=== PATIENT | male | born 1975 | race African-American/Black ===

== ENCOUNTER 2021-09-09 15:05 | Inpatient (IN) | payer BC, MEDICAID ==
[~2021-09-09] VITALS: Ht 170.2 cm; Wt 83.6 kg
[2021-09-09] MEDS ORDERED: ASPIRIN 81MG TABLET PO ONE (15:45)
[2021-09-09] MEDS ORDERED: NICARDIPINE 100 MG in SODIUM CHLORIDE 0.9% 60 ML IV ONE (15:45)
[2021-09-09 16:21] LABS: BASOPHILS % 1.5 % (0.0-2.0); EOSINOPHILS % 1.9 % (0.0-5.0); HEMATOCRIT. 38.7 % (42.0-52.0); HEMOGLOBIN. 12.2 g/dL (14.0-18.0); LYMPHOCYTES % 16.9 % (20.0-50.0); MEAN CORPUSCULAR HEMOGLOBIN 25.5 pg (28.0-32.0); MEAN PLATELET VOLUME 9.5 fl (7.4-10.4); MONOCYTES % 10.6 % (2.0-8.0); NEUTROPHILS % 69.1 % (40.0-76.0); PLATELET 235 x1000/uL (130-400); RED BLOOD CELL COUNT 4.78 mill/uL (4.7-6.1); RED CELL DISTRIBUTION WIDTH 18.6 % (11.6-14.6)
[2021-09-09 16:26] LABS: CHLORIDE 105 mEq/L (98-107)
[2021-09-10] VITALS (8 sets, daily range): BP systolic 132–187; BP diastolic 94–132
[2021-09-10] MEDS ORDERED: ONDANSETRON HCL 4MG/2ML INJ IV PRN (02:45)
[2021-09-10] MEDS ORDERED: ACETAMINOPHEN 650MG SUPP PR PRN (02:45)
[2021-09-10] MEDS ORDERED: HYDROCODONE/ACETAMINOPHEN 5/325MG TABLET PO PRN (02:45)
[2021-09-10] MEDS ORDERED: IPRATROPIUM/ALBUTEROL 0.5-3(2.5)MG/3ML NEB HHN PRN (02:45)
[2021-09-10] MEDS ORDERED: DIPHENHYDRAMINE 50MG/ML VIAL IV PRN (02:45)
[2021-09-10] MEDS ORDERED: ACETAMINOPHEN 325MG TABLET PO PRN ×2 (02:45)
[2021-09-10] MEDS ORDERED: DOCUSATE SODIUM 100MG CAPSULE PO PRN (02:45)
[2021-09-10] MEDS ORDERED: METOPROLOL TARTRATE 25MG TABLET PO SCH ×2 (02:45→09:00)
[2021-09-10] MEDS ORDERED: MAGNESIUM/ALUMINUM HYDROXIDE/SIMETHICONE 30ML UDC PO PRN (02:45)
[2021-09-10] MEDS ORDERED: AMLODIPINE 10MG TABLET PO SCH ×2 (03:00→09:00)
[2021-09-10] MEDS ORDERED: NALOXONE HCL 0.4 MG/ML 1ML VIAL IV PRN (03:15)
[2021-09-10] MEDS: FUROSEMIDE 40MG/4ML VIAL IV SCH ×4 (03:35→17:46)
[2021-09-10] MEDS: ASPIRIN 81MG EC TABLET PO SCH (09:22)
[2021-09-10] MEDS: CLONIDINE 0.1MG TABLET PO PRN ×2 (10:48→17:46)
[2021-09-10 12:11] LABS: BASOPHILS % 0.8 % (0.0-2.0); EOSINOPHILS % 3.6 % (0.0-5.0); HEMATOCRIT. 36.6 % (42.0-52.0); HEMOGLOBIN. 11.9 g/dL (14.0-18.0); LYMPHOCYTES % 12.8 % (20.0-50.0); MEAN CORPUSCULAR HEMOGLOBIN 26.3 pg (28.0-32.0); MEAN CORPUSCULAR VOLUME 80.6 fL (80.0-94.0); MEAN PLATELET VOLUME 9.1 fl (7.4-10.4); MONOCYTES % 9.9 % (2.0-8.0); NEUTROPHILS % 72.9 % (40.0-76.0); PLATELET 240 x1000/uL (130-400); RED BLOOD CELL COUNT 4.54 mill/uL (4.7-6.1)
[2021-09-10 12:16] LABS: CHLORIDE 108 mEq/L (98-107)
[2021-09-10 12:25] LABS: PHOSPHORUS 3.6 mg/dL (2.5-4.9)
[2021-09-10 12:27] LABS: HDL CHOLESTEROL 41 mg/dL (40-59); LDL CHOLESTEROL 69 mg/dL (5-100)
[2021-09-10 12:28] LABS: CREATINE KINASE 145 IU/L (39-308)
[2021-09-10] MEDS ORDERED: POTASSIUM CHLORIDE 20MEQ TABLET SR PO NR (13:45)
[2021-09-10] MEDS: ENOXAPARIN 30MG/0.3ML SYR SUBCUT SCH (15:12)
[2021-09-10 16:33] LABS: CLARITY URINE CLEAR (CLEAR); COLOR URINE YELLOW (YELLOW); KETONES URINE NEGATIVE (NEGATIVE); LEUKOCYTE ESTERASE URINE NEGATIVE (NEGATIVE); NITRITE URINE NEGATIVE (NEGATIVE); OCCULT BLOOD URINE 1+ (NEGATIVE); PH URINE 5.5 (4.5-8.0); PROTEIN URINE 3+ (NEGATIVE); UROBILINOGEN URINE 0.2 E.U./dL (0.2-1.0)
[2021-09-10 16:58] LABS: *AMPHETAMINES SCREEN URINE NEGATIVE (NEGATIVE); *BARBITURATES SCREEN URINE NEGATIVE (NEGATIVE); *BENZODIAZEPINES SCREEN URINE NEGATIVE (NEGATIVE); *COCAINE SCREEN URINE NEGATIVE (NEGATIVE); METHADONE URINE SCREEN NEGATIVE (NEGATIVE); OPIATES URINE SCREEN NEGATIVE (NEGATIVE)
[2021-09-10 17:00] LABS: CANNABINOID URINE SCREEN PRESUMTIVE POSITIVE (NEGATIVE); PHENCYCLIDINE URINE SCREEN NEGATIVE (NEGATIVE)
[2021-09-10] MEDS ORDERED: INFLUENZA VACCINE 05/PF 0.5 ML SYRINGE IM ONE (17:15)
[2021-09-10] MEDS ORDERED: AMLODIPINE 5MG TABLET PO NR (19:00)
[2021-09-10] MEDS ORDERED: HYDRALAZINE HCL 10MG TABLET PO NR (19:00)
[2021-09-10] MEDS ORDERED: CARVEDILOL 3.125 MG TABLET PO NR (19:00)
[2021-09-10] MEDS: CARVEDILOL 3.125 MG TABLET PO SCH (21:00)
[2021-09-10] MEDS: AMLODIPINE 5MG TABLET PO SCH (21:00)
[2021-09-10] MEDS: HYDRALAZINE HCL 10MG TABLET PO SCH (21:00)
[2021-09-11] VITALS (12 sets, daily range): BP systolic 118–152; BP diastolic 76–113
[2021-09-11 07:09] LABS: BASOPHILS % 1.1 % (0.0-2.0); EOSINOPHILS % 2.4 % (0.0-5.0); HEMATOCRIT. 33.8 % (42.0-52.0); LYMPHOCYTES % 20.1 % (20.0-50.0); MEAN CORPUSCULAR HEMOGLOBIN 26.2 pg (28.0-32.0); MEAN CORPUSCULAR VOLUME 80.7 fL (80.0-94.0); MEAN PLATELET VOLUME 9.1 fl (7.4-10.4); MONOCYTES % 12.9 % (2.0-8.0); NEUTROPHILS % 63.5 % (40.0-76.0); PLATELET 216 x1000/uL (130-400); RED BLOOD CELL COUNT 4.19 mill/uL (4.7-6.1); RED CELL DISTRIBUTION WIDTH 17.6 % (11.6-14.6)
[2021-09-11 07:13] LABS: CHLORIDE 106 mEq/L (98-107)
[2021-09-11] MEDS: FUROSEMIDE 40MG/4ML VIAL IV SCH ×2 (07:38→16:54)
[2021-09-11] MEDS: ASPIRIN 81MG EC TABLET PO SCH (07:39)
[2021-09-11] MEDS: HYDRALAZINE HCL 10MG TABLET PO SCH (07:39)
[2021-09-11] MEDS: AMLODIPINE 5MG TABLET PO SCH ×2 (07:39→20:52)
[2021-09-11] MEDS: CARVEDILOL 3.125 MG TABLET PO SCH (07:39)
[2021-09-11] MEDS: HYDRALAZINE HCL 25MG TABLET PO SCH ×2 (09:00→21:43)
[2021-09-11] MEDS: CARVEDILOL 6.25 MG TABLET PO SCH ×2 (09:00→20:52)
[2021-09-11] MEDS ORDERED: POTASSIUM CHLORIDE 20MEQ TABLET SR PO NR (09:00)
[2021-09-11] MEDS: GUAIFENESIN 200MG/10ML SUGAR FREE UDC PO PRN ×3 (13:23→21:43)
[2021-09-11 16:57] LABS: *AMPHETAMINES SCREEN URINE NEGATIVE (NEGATIVE); *BARBITURATES SCREEN URINE NEGATIVE (NEGATIVE); *BENZODIAZEPINES SCREEN URINE NEGATIVE (NEGATIVE); CANNABINOID URINE SCREEN PRESUMTIVE POSITIVE (NEGATIVE); METHADONE URINE SCREEN NEGATIVE (NEGATIVE); OPIATES URINE SCREEN NEGATIVE (NEGATIVE); PHENCYCLIDINE URINE SCREEN NEGATIVE (NEGATIVE)
[2021-09-11] MEDS: ENOXAPARIN 30MG/0.3ML SYR SUBCUT SCH (16:57)
[2021-09-11 16:58] LABS: *COCAINE SCREEN URINE NEGATIVE (NEGATIVE)
[2021-09-12] VITALS (12 sets, daily range): BP systolic 106–158; BP diastolic 75–111
[2021-09-12 07:48] LABS: BASOPHILS % 0.9 % (0.0-2.0); EOSINOPHILS % 1.5 % (0.0-5.0); HEMATOCRIT. 33.5 % (42.0-52.0); HEMOGLOBIN. 10.6 g/dL (14.0-18.0); LYMPHOCYTES % 22.5 % (20.0-50.0); MEAN CORPUSCULAR HEMOGLOBIN 25.9 pg (28.0-32.0); MEAN CORPUSCULAR VOLUME 81.7 fL (80.0-94.0); MEAN PLATELET VOLUME 9.3 fl (7.4-10.4); MONOCYTES % 8.7 % (2.0-8.0); NEUTROPHILS % 66.4 % (40.0-76.0); PLATELET 231 x1000/uL (130-400); RED BLOOD CELL COUNT 4.11 mill/uL (4.7-6.1); RED CELL DISTRIBUTION WIDTH 17.9 % (11.6-14.6)
[2021-09-12 09:15] LABS: PHOSPHORUS 4.5 mg/dL (2.5-4.9)
[2021-09-12] MEDS: ASPIRIN 81MG EC TABLET PO SCH (09:34)
[2021-09-12] MEDS: AMLODIPINE 5MG TABLET PO SCH ×2 (09:35→21:33)
[2021-09-12] MEDS: CARVEDILOL 6.25 MG TABLET PO SCH ×2 (09:35→21:32)
[2021-09-12] MEDS: FUROSEMIDE 40MG/4ML VIAL IV SCH ×2 (09:36→18:00)
[2021-09-12] MEDS: HYDRALAZINE HCL 25MG TABLET PO SCH ×2 (10:02→21:33)
[2021-09-12] MEDS ORDERED: FUROSEMIDE 40MG/4ML VIAL IVP SCH (11:15)
[2021-09-12] MEDS ORDERED: ALBUMIN HUMAN 25GM/100ML (25%) IV NR (13:00)
[2021-09-12] MEDS: ENOXAPARIN 30MG/0.3ML SYR SUBCUT SCH (13:36)
[2021-09-13] VITALS (12 sets, daily range): BP systolic 115–138; BP diastolic 74–107
[2021-09-13 07:48] LABS: BASOPHILS % 0.9 % (0.0-2.0); EOSINOPHILS % 2.5 % (0.0-5.0); HEMATOCRIT. 37.3 % (42.0-52.0); HEMOGLOBIN. 11.6 g/dL (14.0-18.0); LYMPHOCYTES % 28.3 % (20.0-50.0); MEAN CORPUSCULAR HEMOGLOBIN 25.5 pg (28.0-32.0); MEAN CORPUSCULAR VOLUME 81.9 fL (80.0-94.0); MEAN PLATELET VOLUME 9.4 fl (7.4-10.4); MONOCYTES % 9.3 % (2.0-8.0); PLATELET 226 x1000/uL (130-400); RED BLOOD CELL COUNT 4.56 mill/uL (4.7-6.1); RED CELL DISTRIBUTION WIDTH 18.2 % (11.6-14.6)
[2021-09-13] MEDS: FUROSEMIDE 40MG/4ML VIAL IV SCH ×2 (08:19→18:45)
[2021-09-13] MEDS: HYDRALAZINE HCL 25MG TABLET PO SCH ×2 (08:19→21:22)
[2021-09-13] MEDS: ASPIRIN 81MG EC TABLET PO SCH (08:19)
[2021-09-13] MEDS: CARVEDILOL 6.25 MG TABLET PO SCH ×2 (08:20→21:22)
[2021-09-13] MEDS: AMLODIPINE 5MG TABLET PO SCH ×2 (08:20→21:22)
[2021-09-13] MEDS ORDERED: METOLAZONE 2.5MG TABLET PO SCH (10:00)
[2021-09-13] MEDS: ENOXAPARIN 30MG/0.3ML SYR SUBCUT SCH (13:13)
[2021-09-13] MEDS: METOLAZONE 2.5MG TABLET PO SCH (17:34)
[2021-09-14] VITALS (12 sets, daily range): BP systolic 116–140; BP diastolic 73–108
[2021-09-14] MEDS: METOLAZONE 2.5MG TABLET PO SCH ×2 (04:32→18:25)
[2021-09-14 07:30] LABS: EOSINOPHILS % 2.7 % (0.0-5.0); HEMATOCRIT. 35.7 % (42.0-52.0); HEMOGLOBIN. 11.6 g/dL (14.0-18.0); LYMPHOCYTES % 28.5 % (20.0-50.0); MEAN CORPUSCULAR HEMOGLOBIN 26.1 pg (28.0-32.0); MEAN CORPUSCULAR VOLUME 80.6 fL (80.0-94.0); MEAN PLATELET VOLUME 9.5 fl (7.4-10.4); MONOCYTES % 10.7 % (2.0-8.0); NEUTROPHILS % 57.1 % (40.0-76.0); PLATELET 217 x1000/uL (130-400); RED BLOOD CELL COUNT 4.43 mill/uL (4.7-6.1); RED CELL DISTRIBUTION WIDTH 17.9 % (11.6-14.6)
[2021-09-14 07:55] LABS: PHOSPHORUS 4.8 mg/dL (2.5-4.9)
[2021-09-14] MEDS: ASPIRIN 81MG EC TABLET PO SCH (08:47)
[2021-09-14] MEDS: FUROSEMIDE 40MG/4ML VIAL IV SCH ×2 (08:47→18:26)
[2021-09-14] MEDS: CARVEDILOL 6.25 MG TABLET PO SCH (08:48)
[2021-09-14] MEDS: HYDRALAZINE HCL 25MG TABLET PO SCH ×2 (08:48→21:08)
[2021-09-14] MEDS: AMLODIPINE 5MG TABLET PO SCH ×2 (08:48→21:08)
[2021-09-14] MEDS ORDERED: POTASSIUM CHLORIDE 20MEQ TABLET SR PO NR (10:00)
[2021-09-14] MEDS: ENOXAPARIN 30MG/0.3ML SYR SUBCUT SCH (14:45)
[2021-09-14] MEDS: CARVEDILOL 12.5MG TABLET PO SCH (21:09)
[2021-09-15] VITALS (7 sets, daily range): BP systolic 117–137; BP diastolic 74–97
[2021-09-15] MEDS: METOLAZONE 2.5MG TABLET PO SCH (04:37)
[2021-09-15 06:54] LABS: BASOPHILS % 1.1 % (0.0-2.0); EOSINOPHILS % 2.4 % (0.0-5.0); HEMATOCRIT. 37.1 % (42.0-52.0); HEMOGLOBIN. 11.7 g/dL (14.0-18.0); LYMPHOCYTES % 28.5 % (20.0-50.0); MEAN CORPUSCULAR HEMOGLOBIN 25.6 pg (28.0-32.0); MEAN CORPUSCULAR VOLUME 81.3 fL (80.0-94.0); MONOCYTES % 9.7 % (2.0-8.0); NEUTROPHILS % 58.3 % (40.0-76.0); PLATELET 231 x1000/uL (130-400); RED BLOOD CELL COUNT 4.57 mill/uL (4.7-6.1); RED CELL DISTRIBUTION WIDTH 17.7 % (11.6-14.6)
[2021-09-15 07:12] LABS: PHOSPHORUS 4.6 mg/dL (2.5-4.9)
[2021-09-15] MEDS: HYDRALAZINE HCL 25MG TABLET PO SCH (10:05)
[2021-09-15] MEDS: FUROSEMIDE 40MG/4ML VIAL IV SCH (10:05)
[2021-09-15] MEDS: ASPIRIN 81MG EC TABLET PO SCH (10:05)
[2021-09-15] MEDS: AMLODIPINE 5MG TABLET PO SCH (10:06)
[2021-09-15] MEDS: CARVEDILOL 12.5MG TABLET PO SCH (10:06)
[2021-09-15] MEDS ORDERED: AMLO5TAB88 PO (10:16)
[2021-09-15] MEDS ORDERED: HYDR-4134 PO (10:16)
[2021-09-15] MEDS ORDERED: COR12 PO (10:16)
[2021-09-15] MEDS ORDERED: ASPI-1406 PO (10:16)
== END 2021-09-15 11:53 | disposition home or self-care (01) | DRG 198 ==
LOC: ER 15:05 → EDBEDREQTM 21:01 → EDBEDREQ 21:01 → EDBEDREQSVC 21:01 → MICUSO 21:48 → 3WST 09-10 09:04
PROVIDERS: ADMIT Internal Medicine; ATTEND Internal Medicine
DX: I24.9 Acute ischemic heart disease, unspecified (principal); J96.91 Respiratory failure, unspecified with hypoxia; I50.23 Acute on chronic systolic (congestive) heart failure; N17.9 Acute kidney failure, unspecified; E43 Unspecified severe protein-calorie malnutrition; I13.0 Hypertensive heart and chronic kidney disease with heart failure and stage 1 through stage 4 chronic kidney disease, or unspecified chronic kidney disease; I31.3 Pericardial effusion (noninflammatory); I16.1 Hypertensive emergency; D64.9 Anemia, unspecified; E78.5 Hyperlipidemia, unspecified; F17.200 Nicotine dependence, unspecified, uncomplicated; E87.6 Hypokalemia; R00.0 Tachycardia, unspecified; E80.6 Other disorders of bilirubin metabolism; R74.01 Elevation of levels of liver transaminase levels; Z20.822 Contact with and (suspected) exposure to COVID-19; I42.0 Dilated cardiomyopathy; N18.4 Chronic kidney disease, stage 4 (severe); J98.11 Atelectasis; Z86.16 Personal history of COVID-19; Z68.28 Body mass index [BMI] 28.0-28.9, adult; Z82.49 Family history of ischemic heart disease and other diseases of the circulatory system
CPT/HCPCS: 36415; 71045; 71250; 76770; 80048; 80053; 80061; 80305; 81003; 82550; 82570; 83615; 83735; 83880; 84100; 84156; 84443; 84484; 85025; 87426; 90686; 93005; 93306; 93923; 93970; 99291; J1650; J1940; J3490; J7050; P9047